=== PATIENT | male | born 1995 | race Caucasian/White ===

== ENCOUNTER 2017-12-20 19:15 | Emergency (ER) | payer OTHER ==
--- NOTE | 2017-12-20 19:28 | EDPHY ---
H & P Stated Complaint: Fell off rock wall and injuried right wrist didn't head or LOC Time Seen by Provider: 12/20/17 19:28 - Personal History Current Tetanus/Diphtheria Vaccine: Yes Current Tetanus Diphtheria and Acellular Pertussis (TDAP): Yes Tetanus Vaccine Date: 2011 - Medical/Surgical History Hx Asthma: No Hx Chronic Respiratory Disease: No Hx Diabetes: No Hx Cardiac Disease: No Hx Renal Disease: No Hx Cirrhosis: No Hx Alcoholism: No Hx HIV/AIDS: No Hx Splenectomy or Spleen Trauma: No Other PMH: c-spine fusion - Social History Smoking Status: Never smoked Constitutional: Initial Vital Signs Temperature (C) 37.1 C 12/20/17 19:22 Heart Rate 65 12/20/17 19:22 Respiratory Rate 16 12/20/17 19:22 Blood Pressure 123/79 H 12/20/17 19:22 O2 Sat (%) 95 12/20/17 19:22 O2 Delivery Mode Room Air Allergies/Adverse Reactions: menthol [From [employer]] Allergy (Verified 12/20/17 19:25) methyl salicylate [From Icy Hot] Allergy (Verified 12/20/17 19:25) Home Medications: Medication Instructions Recorded NK [No Known Home Meds] 12/20/17 Medical Decision Making - Diagnostics Imaging Results: Imaging Impressions Forearm X-Ray 12/20/17 19:28 Impression: Mildly displaced intra-articular fracture of the distal right radius and minimally displaced fracture of the right ulnar styloid. Right Forearm, 2 Views History: Pain and trauma after fall. Findings: The comminuted mildly displaced intra-articular fracture is seen of the distal radius described in the report of the right wrist, as well as a fracture of the ulnar styloid. No other findings for fracture in the right radius or ulna. No evidence for elbow joint effusion. Impression: Comminuted mildly displaced intra-articular fracture of the distal radius and minimally displaced fracture of the ulnar styloid. Wrist X-Ray 12/20/17 19:28 Impression: Mildly displaced intra-articular fracture of the distal right radius and minimally displaced fracture of the right ulnar styloid. Right Forearm, 2 Views History: Pain and trauma after fall. Findings: The comminuted mildly displaced intra-articular fracture is seen of the distal radius described in the report of the right wrist, as well as a fracture of the ulnar styloid. No other findings for fracture in the right radius or ulna. No evidence for elbow joint effusion. Impression: Comminuted mildly displaced intra-articular fracture of the distal radius and minimally displaced fracture of the ulnar styloid. Imaging: I viewed and interpreted images myself ED Course/Re-evaluation: CHIEF COMPLAINT: Right wrist pain HISTORY OF PRESENT ILLNESS: Healthy 22-year-old who fell on outstretched right wrist while was behind him while climbing yesterday. He thinks he broke his wrist. There is significant amount of swelling it is painful for any range of motion. He denies any other injury. 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 REVIEW OF SYSTEMS: A 10 point review of systems was performed and is negative with the exception of the elements mentioned in the history of present illness. PHYSICAL EXAM: HR, BP, O2 Sat, RR. Temp noted General Appearance: Alert, well hydrated, appropriate, and non-toxic appearing. Head: Atraumatic without scalp tenderness or obvious injury Eyes: Pupils equal, round, reactive to light and accommodation, EOMI, no trauma , no injection. Ears: Clear bilaterally, no perforation, normal landmarks Nose: Atraumatic, no rhinorrhea, clear. Throat: There is no erythema or exudates, no lesions, normal tonsils, mucus membranes moist. Neck: Supple, 2+ carotid upstroke, nontender, no lymphadenopathy. Respiratory: No retractions, no distress, no wheezes, and no accessory muscle use. Lungs are clear to auscultation bilaterally. Cardiovascular: Regular rate and rhythm, no murmurs, rubs, or gallops. Bilateral carotid, radial, dorsalis pedis, and posterior tibial pulses intact. Good capillary refill all extremities. Gastrointestinal: Abdomen is soft, nontender, non-distended, no masses, no rebound, no guarding, no peritoneal signs. Musculoskeletal: Swelling and decreased range of motion of the right wrist with some dorsal angulation. Otherwise, Normal active ROM of all extremities, atraumatic. Neurological: Alert, appropriate, and interactive. The patient has normal DTRs and non-focal cranial nerves, motor, sensory, and cerebellar exam. Skin: No rashes, good turgor, no nodules on palpation. Past medical history: Congenital neck abnormality Past surgical history: Neck fusion Family history: Noncontributory Social history: Single, student, employed, does not abuse tobacco drugs or alcohol DIAGNOSTICS/PROCEDURES/CRITICAL CARE TIME: Study: Two views of the right forearm three views of the right wrist Indication: Trauma Results: After viewing the images myself on the PACS system. My interpretation of the images is: Comminuted mildly displaced intra-articular fracture of the distal radius and minimally displaced fracture of the ulnar styloid.. The radiologist interpretation is pending at the time of this dictation. I have discussed the above x-rays with the radiologist. DIFFERENTIAL DIAGNOSIS: The differential diagnosis for the patient's trauma included but was not limited to intracranial injury, long bone and pelvic bone fractures, spinal injury, intra-abdominal injury, and intra-thoracic injury. MEDICAL DECISION MAKING: This patient has swelling of the right wrist after falling on a 24 hr ago. Clinically it looks like he has osseous injury. He has good range of motion of his fingers. The fracture is not open. There is no evidence of tenting of the skin. He is neurovascularly intact distally injury. The joints above and below are normal. There is no evidence of compartment syndrome. 20:05 Reviewed wrist x-ray. Comminuted mildly displaced intra-articular fracture of the distal radius and minimally displaced fracture of the ulnar styloid. Scaphoid normal. Reassessed patient. Reviewed results of x-ray. Plan to discharge home in good condition after splinting the wrist. He is returning home to [place] this weekend so he will follow up with an internet specialist there. He declines any pain medications. Follow up and return precautions discussed. He is comfortable with this plan. Departure - Departure Disposition: Home, Routine, Self-Care Clinical Impression: Radius distal fracture Qualifiers: Encounter type: initial encounter Fracture type: closed Fracture morphology: other intra-articular Laterality: right Qualified Code(s): S52.571A - Other intraarticular fracture of lower end of right radius, initial encounter for closed fracture Fracture of ulnar styloid Qualifiers: Encounter type: initial encounter Fracture type: closed Fracture alignment: nondisplaced Laterality: right Qualified Code(s): S52.614A - Nondisplaced fracture of right ulna styloid process, initial encounter for closed fracture Condition: Good Instructions: Wrist Fracture in Adults (ED) Additional Instructions: 1. Follow up with an internet specialist when you return home, within one week. 2. Rest, ice, elevation. Wear splint at all times until reevaluation. 3. Return to the emergency department for worsening pain, swelling, numbness, weakness or other concerns. Referrals: Darren Chairez MD [Medical Doctor] - As per Instructions Report Scribed for: Otto Rod Report Scribed by: Mulu Cooney Date of Report: 12/20/17 Time of Report: 20:04
[2017-12-20 20:13] VITALS: BP 107/74
== END 2017-12-20 20:14 | disposition home or self-care (01) ==
DX: S52.571A Other intraarticular fracture of lower end of right radius, initial encounter for closed fracture (principal); S52.614A Nondisplaced fracture of right ulna styloid process, initial encounter for closed fracture; W18.39XA Other fall on same level, initial encounter; Y99.8 Other external cause status; Y93.39 Activity, other involving climbing, rappelling and jumping off
CPT/HCPCS: L3807